=== PATIENT | male | born 1940 | race American Indian/Alaskan Native ===

== ENCOUNTER 2018-07-08 14:38 | Emergency (ER) | payer MEDICARE, OTHER ==
[2018-07-08] MEDS ORDERED: KEPPRA 1,000 MG/NS 0.75% 100ML 1,000 MG/100 ML BAG IV ONE (15:50)
--- NOTE | 2018-07-08 15:53 | Emergency Department Report ---
ED General Adult HPI - General Chief complaint: Seizure Stated complaint: LETHARGIC Time Seen by Provider: 07/08/18 15:40 Source: patient, EMS Mode of arrival: Stretcher Limitations: Altered Mental Status - History of Present Illness Initial comments: 77-year-old male with a history of pre-existing seizure disorder who does take Keppra is transported to this facility after what I presume to be a generalized seizure. I do not have access to the EMS report at this time. The patient has no specific complaints upon my encounter. He is basically oriented and alert. He did have a bit of trouble with the city thinking that it was [place] as opposed to [place]. He appears me stating that he lives with his nephew or other family member. He did not injure himself during the above seizure. He is comfortable. He shakes my hand on my encounter. He is in no distress. -: This afternoon Associated Symptoms: denies other symptoms - Related Data Previous Rx's Medication Instructions Recorded Last Taken Type levETIRAcetam [Keppra TAB] 500 mg PO BID #60 tablet 07/08/18 Unknown Rx ED Review of Systems ROS: Stated complaint: LETHARGIC Other details as noted in HPI Comment: All other systems reviewed and negative (limited secondary to likely dementia) ED Past Medical Hx - Past Medical History Hx Hypertension: Yes Hx Seizures: Yes - Social History Smoking Status: Current Every Day Smoker Substance Use Type: None - Medications Home Medications: Home Medications Medication Instructions Recorded Confirmed Last Taken Type levETIRAcetam [Keppra TAB] 500 mg PO BID #60 tablet 07/08/18 Unknown Rx ED Physical Exam - General Limitations: Other (dementia is likely) General appearance: alert, in no apparent distress - Head Head exam: Present: atraumatic, normocephalic - Eye Eye exam: Present: normal appearance, PERRL, EOMI. Absent: scleral icterus - ENT ENT exam: Present: mucous membranes moist, other (atraumatic tongue) - Neck Neck exam: Present: normal inspection. Absent: tenderness, meningismus - Respiratory Respiratory exam: Present: normal lung sounds bilaterally. Absent: respiratory distress - Cardiovascular Cardiovascular Exam: Present: regular rate, normal rhythm. Absent: systolic murmur, diastolic murmur, rubs, gallop - GI/Abdominal GI/Abdominal exam: Present: soft, normal bowel sounds. Absent: distended, tenderness, guarding, rebound, rigid - Rectal Rectal exam: Present: deferred - Extremities Exam Extremities exam: Present: normal inspection - Back Exam Back exam: Present: normal inspection. Absent: paraspinal tenderness, vertebral tenderness - Neurological Exam Neurological exam: Present: alert, oriented X3, CN II-XII intact. Absent: motor sensory deficit - Psychiatric Psychiatric exam: Present: normal affect, normal mood - Skin Skin exam: Present: warm, dry, intact, normal color. Absent: rash ED Course Vital Signs 07/08/18 15:15 Temperature 98.7 F Pulse Rate 62 Respiratory 22 Rate Blood Pressure 109/54 O2 Sat by Pulse 97 Oximetry - Reevaluation(s) Reevaluation #1: Patient was given Keppra. He had no recurrent seizures. I believe he is at his baseline mental status. He is appropriate for outpatient management. 07/08/18 17:50 ED Medical Decision Making - Lab Data Result diagrams: 07/08/18 15:58 07/08/18 15:58 Laboratory Results - last 24 hr 07/08/18 15:58 WBC 7.6 RBC 3.80 Hgb 9.7 L Hct 30.6 L MCV 81 L MCH 25 L MCHC 32 RDW 19.9 H Plt Count 230 Lymph % (Auto) 13.3 L [place] % (Auto) 8.7 H Eos % (Auto) 1.1 Baso % (Auto) 0.5 Lymph # 1.0 L [place]undy # 0.7 Eos # 0.1 Baso # 0.0 Seg Neutrophils % 76.4 H Seg Neutrophils # 5.8 Laboratory Results - last 24 hr 07/08/18 07/08/18 15:58 15:58 WBC 7.6 RBC 3.80 Hgb 9.7 L Hct 30.6 L MCV 81 L MCH 25 L MCHC 32 RDW 19.9 H Plt Count 230 Lymph % (Auto) 13.3 L [place] % (Auto) 8.7 H Eos % (Auto) 1.1 Baso % (Auto) 0.5 Lymph # 1.0 L [place]undy # 0.7 Eos # 0.1 Baso # 0.0 Seg Neutrophils % 76.4 H Seg Neutrophils # 5.8 Sodium 143 Potassium 4.1 Chloride 106.1 Carbon Dioxide 26 Anion Gap 15 BUN 28 H Creatinine 1.6 H Estimated GFR 42 BUN/Creatinine Ratio 18 Glucose 99 Calcium 9.1 Magnesium 2.30 Total Bilirubin < 0.20 Direct Bilirubin < 0.2 Indirect Bilirubin 0.0 AST 11 ALT 7 Alkaline Phosphatase 90 Total Protein 7.5 Albumin 3.8 L Albumin/Globulin Ratio 1.0 Critical care attestation.: If time is entered above; I have spent that time in minutes in the direct care of this critically ill patient, excluding procedure time. ED Disposition Clinical Impression: Seizure, History of seizure disorder, Renal insufficiency Anemia Qualifiers: Anemia type: unspecified type Qualified Code(s): D64.9 - Anemia, unspecified Disposition: DC-01 TO HOME OR SELFCARE Is pt being admited?: No Does the pt Need Aspirin: No Condition: Stable Instructions: Recurrent Seizures Adult (ED), Chronic Kidney Disease (ED), Anemia (ED) Additional Instructions: Follow-up with your primary care physician. If he needs a prescription for Keppra, it is attached. Return any acute change or problem. Prescriptions: levETIRAcetam [Keppra TAB] 500 mg PO BID #60 tablet Referrals: PRIMARY CARE [Primary Care Provider] - 3-5 Days Time of Disposition: 17:47
[2018-07-08 16:37] LABS: Basophils % (Auto) 0.5 % (0.0-1.8); Eosinophils # (Auto) 0.1 K/mm3 (0.0-0.4); Eosinophils % (Auto) 1.1 % (0.0-4.3); Hematocrit 30.6 % (35.5-45.6); Hemoglobin 9.7 gm/dl (11.8-15.2); Lymphocytes % (Auto) 13.3 % (13.4-35.0); Mean Corpuscular HGB Conc 32 % (32-34); Mean Corpuscular Volume 81 fl (84-94); Monocytes # (Auto) 0.7 K/mm3 (0.0-0.8); Monocytes % (Auto) 8.7 % (0.0-7.3); Platelet Count 230 K/mm3 (140-440); Red Cell Distribution Width 19.9 % (13.2-15.2)
[2018-07-08 17:01] LABS: Alanine Aminotransferase 7 units/L (7-56); Albumin 3.8 g/dL (3.9-5); BUN/Creatinine Ratio 18; Blood Urea Nitrogen 28 mg/dL (9-20); Calcium 9.1 mg/dL (8.4-10.2); Hemolysis Index 12
[2018-07-08 17:15] LABS: Bilirubin,Direct < 0.2 mg/dL (0-0.2)
[2018-07-08 20:25] VITALS: BP 155/80
== END 2018-07-08 22:54 | disposition home or self-care (01) ==
LOC: ED 14:38
DX: G40.909 Epilepsy, unspecified, not intractable, without status epilepticus (principal); D64.9 Anemia, unspecified; N28.9 Disorder of kidney and ureter, unspecified; I10 Essential (primary) hypertension; F17.200 Nicotine dependence, unspecified, uncomplicated
CPT/HCPCS: 36415; 80048; 80076; 82962; 83735; 85025; 96374; 99284; J1953

== ENCOUNTER 2018-08-21 13:44 | Emergency (ER) | payer MEDICARE, OTHER ==
--- NOTE | 2018-08-21 15:49 | Emergency Department Report ---
ED General Adult HPI - General Chief complaint: Weakness Stated complaint: WEAKNESS X 2DAYS Time Seen by Provider: 08/21/18 14:58 Source: EMS (ems notes not available at time of chart dictation), RN notes reviewed, old records reviewed Mode of arrival: Stretcher Limitations: Altered Mental Status, Physical Limitation - History of Present Illness Initial comments: This is a pleasant 77-year-old gentleman. The patient is not known to this provider previously. He may have a history of seizures, and renal insufficiency. He was seen in this department early June 2018 for general weakness. Today, he is reportedly sent to the emergency room by family for weakness. As per verbal report from nursing staff, who in turn received verbal report from EMS, EMS indicated that patient's family would not come down with the patient, and that they were simply shouting down the stairs to give a history to EMS. In the emergency room, the patient denies headache, neck pain, exertional chest pain, abdominal pain, nausea, vomiting, diarrhea, extremity weakness or numbness, and urinary symptoms. He indicates no complaints at this provider. He doesn't know what medications he takes. He is asking to sleep and to eat. No additional history available at this time. -: unknown Improves with: none Worsens with: none - Related Data Previous Rx's Medication Instructions Recorded Last Taken Type levETIRAcetam [Keppra TAB] 500 mg PO BID #60 tablet 07/08/18 Unknown Rx Allergies Allergy/AdvReac Type Severity Reaction Status Date / Time No Known Allergies Allergy Unverified 08/21/18 14:32 ED Review of Systems ROS: Stated complaint: WEAKNESS X 2DAYS Other details as noted in HPI Constitutional: denies: fever Eyes: denies: eye discharge ENT: denies: epistaxis Respiratory: denies: cough Cardiovascular: denies: chest pain Gastrointestinal: denies: vomiting Genitourinary: denies: dysuria Musculoskeletal: denies: back pain Skin: denies: lesions Neurological: denies: headache ED Past Medical Hx - Past Medical History Previous Medical History?: Yes Hx Hypertension: Yes Hx CVA: Yes Hx Seizures: Yes Additional medical history: Dementia, Alzheimer - Surgical History Past Surgical History?: No - Social History Smoking Status: Never Smoker - Medications Home Medications: Home Medications Medication Instructions Recorded Confirmed Last Taken Type levETIRAcetam [Keppra TAB] 500 mg PO BID #60 tablet 07/08/18 Unknown Rx ED Physical Exam - General General appearance: alert, in no apparent distress - Head Head exam: Present: atraumatic, normocephalic - Eye Eye exam: Present: normal appearance, EOMI. Absent: nystagmus - ENT ENT exam: Present: normal exam, normal orophraynx, mucous membranes moist, normal external ear exam - Neck Neck exam: Present: normal inspection, full ROM. Absent: tenderness, meningismus - Respiratory Respiratory exam: Present: normal lung sounds bilaterally. Absent: respiratory distress - Cardiovascular Cardiovascular Exam: Present: regular rate, normal rhythm, normal heart sounds. Absent: bradycardia, tachycardia, irregular rhythm, systolic murmur, diastolic murmur, rubs, gallop - GI/Abdominal GI/Abdominal exam: Present: soft. Absent: distended, tenderness, guarding, rebound, rigid, pulsatile mass - Rectal Rectal exam: Present: deferred - Extremities Exam Extremities exam: Present: normal inspection, full ROM, other (2+ pulses noted in the bilateral upper, lower extremities. Compartments soft. No long bony tenderness. The pelvis is stable.). Absent: pedal edema, calf tenderness - Back Exam Back exam: Present: normal inspection, full ROM. Absent: tenderness, CVA tenderness (R), CVA tenderness (L), paraspinal tenderness, vertebral tenderness - Neurological Exam Neurological exam: Present: alert, other (Extraocular movements intact. Tongue midline. No facial droop. Facial sensation intact to light touch in the V1, V2, V3 distribution bilaterally. 5 and 5 strength in 4 extremities.. Sensation is intact to light touch in 4 extremities.). Absent: motor sensory deficit - Psychiatric Psychiatric exam: Present: flat affect - Skin Skin exam: Present: warm, dry, intact, normal color. Absent: rash ED Course Vital Signs 08/21/18 08/21/18 08/21/18 14:27 14:38 14:46 Temperature Pulse Rate 77 50 L Respiratory 18 15 Rate Blood Pressure 126/92 Blood Pressure [Left] O2 Sat by Pulse 98 95 96 Oximetry 08/21/18 08/21/18 08/21/18 15:00 15:16 15:30 Temperature Pulse Rate 49 L 47 L 48 L Respiratory 16 17 14 Rate Blood Pressure Blood Pressure [Left] O2 Sat by Pulse 97 99 98 Oximetry 08/21/18 08/21/18 08/21/18 15:46 16:04 16:05 Temperature 97.9 F Pulse Rate 60 48 L 95 H Respiratory 14 18 20 Rate Blood Pressure Blood Pressure 96/59 [Left] O2 Sat by Pulse 96 96 98 Oximetry 08/21/18 08/21/18 08/21/18 16:12 16:15 16:59 Temperature 97.9 F Pulse Rate 45 L Respiratory 13 Rate Blood Pressure 144/73 144/73 Blood Pressure [Left] O2 Sat by Pulse 98 72 L Oximetry 08/21/18 17:01 Temperature Pulse Rate 52 L Respiratory 12 Rate Blood Pressure 155/81 Blood Pressure [Left] O2 Sat by Pulse 100 Oximetry - Reevaluation(s) Reevaluation #1: 08/21/18 16:44 Differential diagnosis, including not limited to: Dementia, pneumonia, urinary tract infection, thyroid derangement, electrolyte derangement Assessment and plan: 77-year-old gentleman, likely early dementia, with no endorsed complaint to this provider. The patient is afebrile with reassuring vital signs. His physical exam is unremarkable. Recent laboratory studies are reviewed and appreciated. CT scan of the brain, x-ray of the chest, laboratory studies, urinalysis pending. Reevaluation #2: 08/21/18 18:30 Vital signs have remained stable. Patient is in no acute distress. Objective testing appears to be unremarkable. Moving 4 extremities without difficulty. Patient is observed in this department for almost 5 hours without decompensation. He does not appear to have an emergent medical condition at this time. ED Medical Decision Making - Lab Data Result diagrams: 08/21/18 15:52 08/21/18 15:52 Vital Signs 08/21/18 08/21/18 08/21/18 14:27 14:38 14:46 Temperature Pulse Rate 77 50 L Respiratory 18 15 Rate Blood Pressure 126/92 Blood Pressure [Left] O2 Sat by Pulse 98 95 96 Oximetry 08/21/18 08/21/18 08/21/18 15:00 16:04 16:05 Temperature 97.9 F Pulse Rate 49 L 48 L 95 H Respiratory 16 18 20 Rate Blood Pressure Blood Pressure 96/59 [Left] O2 Sat by Pulse 97 96 98 Oximetry 08/21/18 16:12 Temperature 97.9 F Pulse Rate Respiratory Rate Blood Pressure Blood Pressure [Left] O2 Sat by Pulse Oximetry Lab Results 08/21/18 08/21/18 Range/Units 15:52 15:52 WBC 3.6 L (4.5-11.0) K/mm3 RBC 3.95 (3.65-5.03) M/mm3 Hgb 10.1 L (11.8-15.2) gm/dl Hct 31.7 L (35.5-45.6) % MCV 80 L (84-94) fl MCH 26 L (28-32) pg MCHC 32 (32-34) % RDW 19.4 H (13.2-15.2) % Plt Count 208 (140-440) K/mm3 PT 13.0 (12.2-14.9) Sec. INR 1.01 (0.87-1.13) - EKG Data -: EKG Interpreted by Vt Rate: bradycardia - EKG Data When compared to previous EKG there are: previous EKG unavailable 08/21/18 16:45 There is no prior EKG for comparison. This is a sinus bradycardia, with a left axis deviation, right bundle-branch block, QTC within normal limits, ID interval within normal limits, this is an abnormal EKG, this EKG is not consistent with ST elevation myocardial infarction. - Radiology Data Radiology results: pending, report reviewed, image reviewed X-ray of the chest interpreted as negative for acute disease Print Report Referring Physician: ILSA CASTRO Patient Name: TRI BLANCA Date of : 1940 Sex: Male Report Date: 2018-08-21 Report Status: [place] [address] Cat Scan Report Signed Patient: TRI BLANCA MR#: [id number] 0 : 1940 Acct:[id number] Age/Sex: 77 / M ADM Date: 08/21/18 Loc: ED Attending Dr: Ordering Physician: ILSA CASTRO MD Date of Service: 08/21/18 Procedure(s): CT head/brain wo con Accession Number(s): [id number] cc: ILSA CASTRO MD CT HEAD WITHOUT CONTRAST INDICATION / CLINICAL INFORMATION: MAIN: Weakness, AMS. TECHNIQUE: All CT scans at this location are performed using CT dose reduction for ALARA by means of automated exposure control. COMPARISON: None available. FINDINGS: HEMORRHAGE: No evidence of intracranial hemorrhage or extra-axial fluid collection. EXTRA-AXIAL SPACES: Cortical sulci and sylvian fissures are enlarged reflecting a degree of parenchymal volume loss which is prominent given the patient's age of 77 years. Basilar cisterns have an unremarkable appearan ce. VENTRICULAR SYSTEM: The third and lateral ventricles are enlarged reflecting resonance of age related parenchymal volume loss. CEREBRAL PARENCHYMA: Periventricular and deep white matter lucency is observed. This is probably secondary to microvascular ischemic change. There is no indication of recent infarction. An area of encephalomalacia is served along the medial aspect of the right frontal lobe secondary to remote anterior cerebral artery infarction. Bilateral remote small deep thalamic infarctions are identified. A remote, small deep infarction is identified in the region of the left putamen. In addition a remote small deep infarction is present in the vicinity of the genu of the int ernal capsule on the right. MIDLINE SHIFT OR HERNIATION: There is no mass effect. CEREBELLUM / BRAINSTEM: Brainstem and cerebellum have an unremarkable appearance. INTRACRANIAL VESSELS:Calcified atherosclerotic plaque is present along the course of the cavernous segments of both internal carotid arteries. ORBITS: visualized portions of the orbits have an unremarkable appearance. SOFT TISSUES of HEAD: No significant abnormality. CALVARIUM: Evaluation of bone windows reveals no abnormalities. PARANASAL SINUSES / MASTOID AIR CELLS: Paranasal sinuses are free from inflammatory mucosal disease. Mastoid air cells are normally pneumatized. ADDITIONAL FINDINGS: None. IMPRESSION: 1. Moderate central greater than cortical atrophy which is prominent even allowing for the patient's age of 77 years. 2. Remote right anterior cerebral artery infarction. 3. Multifocal small deep thalamic and gangliocapsular infarctions. Signer Name: Mike Cosby MD Signed: 08/21/2018 4:47 PM Workstation Name: [id number] Transcribed By: REF Dictated By: JEFF HUANG MD Electronically Authenticated By: JEFF HUANG MD Signed Date/Time: 08/21/18 0650 Critical care attestation.: If time is entered above; I have spent that time in minutes in the direct care of this critically ill patient, excluding procedure time. ED Disposition Clinical Impression: General medical exam Disposition: DC- TO HOME OR SELFCARE Is pt being admited?: No Does the pt Need Aspirin: No Condition: Stable Additional Instructions: Follow-up with the primary care doctor within 7-10 days. Avoid consumption of Motrin, ibuprofen, Naprosyn, Aleve. He is return to the emergency room right away with it, worsened or different symptoms not present on the initial emergency room evaluation. Referrals: [facility] [Provider Group] - 3-5 Days [facility] [Provider Group] - 3-5 Days
[2018-08-21 16:10] LABS: Hematocrit 31.7 % (35.5-45.6); Hemoglobin 10.1 gm/dl (11.8-15.2); Mean Corpuscular HGB Conc 32 % (32-34); Mean Corpuscular Volume 80 fl (84-94); Platelet Count 208 K/mm3 (140-440); Red Blood Count 3.95 M/mm3 (3.65-5.03); Red Cell Distribution Width 19.4 % (13.2-15.2)
[2018-08-21 16:21] LABS: INR 1.01 (0.87-1.13)
--- NOTE | 2018-08-21 16:36 | XRay Report ---
CHEST 1 VIEW INDICATION / CLINICAL INFORMATION: Weakness. COMPARISON: None available. FINDINGS: SUPPORT DEVICES: None. HEART / MEDIASTINUM: No significant abnormality. LUNGS / PLEURA: No significant pulmonary or pleural abnormality.. No pneumothorax. ADDITIONAL FINDINGS: 2 surgical clips project over the right hilum IMPRESSION: 1. No acute findings. Signer Name: Memo Vidal MD Signed: 08/21/2018 4:31 PM Workstation Name: [id number]
[2018-08-21 17:08] LABS: Calcium 8.8 mg/dL (8.4-10.2)
[2018-08-21] MEDS ORDERED: ATIVAN IM PRN (17:28)
[2018-08-21] MEDS ORDERED: HALDOL IM STA (17:28)
--- NOTE | 2018-08-21 17:51 | Cat Scan Report ---
CT HEAD WITHOUT CONTRAST INDICATION / CLINICAL INFORMATION: MAIN: Weakness, AMS. TECHNIQUE: All CT scans at this location are performed using CT dose reduction for ALARA by means of automated e xposure control. COMPARISON: None available. FINDINGS: HEMORRHAGE: No evidence of intracranial hemorrhage or extra-axial fluid collection. EXTRA-AXIAL SPACES: Cortical sulci and sylvian fissures are enlarged reflecting a degree of parenchym al volume loss which is prominent given the patient's age of 77 years. Basilar cisterns have an unrem arkable appearance. VENTRICULAR SYSTEM: The third and lateral ventricles are enlarged reflecting resonance of age related parenchymal volume loss. CEREBRAL PARENCHYMA: Periventricular and deep white matter lucency is observed. This is probably seco ndary to microvascular ischemic change. There is no indication of recent infarction. An area of encep halomalacia is served along the medial aspect of the right frontal lobe secondary to remote anterior cerebral artery infarction. Bilateral remote small deep thalamic infarctions are identified. A remote , small deep infarction is identified in the region of the left putamen. In addition a remote small d eep infarction is present in the vicinity of the genu of the internal capsule on the right. MIDLINE SHIFT OR HERNIATION: There is no mass effect. CEREBELLUM / BRAINSTEM: Brainstem and cerebellum have an unremarkable appearance. INTRACRANIAL VESSELS:Calcified atherosclerotic plaque is present along the course of the cavernous se gments of both internal carotid arteries. ORBITS: visualized portions of the orbits have an unremarkable appearance. SOFT TISSUES of HEAD: No significant abnormality. CALVARIUM: Evaluation of bone windows reveals no abnormalities. PARANASAL SINUSES / MASTOID AIR CELLS: Paranasal sinuses are free from inflammatory mucosal disease. Mastoid air cells are normally pneumatized. ADDITIONAL FINDINGS: None. IMPRESSION: 1. Moderate central greater than cortical atrophy which is prominent even allowing for the patient's age of 77 years. 2. Remote right anterior cerebral artery infarction. 3. Multifocal small deep thalamic and gangliocapsular infarctions. Signer Name: Mike Cosby MD Signed: 08/21/2018 5:47 PM Workstation Name: [id number]
[2018-08-21 18:00] LABS: Bilirubin,Urine NEG (Negative); Blood,Urine NEG (Negative); Color,Urine Yellow (Yellow); Hyaline Casts,Urine 1 /LPF; Protein,Urine <15 mg/dL mg/dL (Negative); Urobilinogen,Urine < 2.0 mg/dL (<2.0)
[2018-08-22] MEDS ORDERED: PROVENTIL IH PRN (10:01)
[2018-08-22] MEDS ORDERED: ZOFRAN ODT PO PRN (10:01)
[2018-08-22] MEDS ORDERED: TYLENOL PO PRN (10:01)
[2018-08-22] MEDS ORDERED: KEPPRA PO SCH (11:00)
[2018-08-22 11:03] VITALS: BP 156/79
== END 2018-08-22 11:20 | disposition home or self-care (01) ==
LOC: ED 13:44
DX: Z00.8 Encounter for other general examination (principal); I10 Essential (primary) hypertension; G30.9 Alzheimer's disease, unspecified; F02.80 Dementia in other diseases classified elsewhere, unspecified severity, without behavioral disturbance, psychotic disturbance, mood disturbance, and anxiety; Z86.73 Personal history of transient ischemic attack (TIA), and cerebral infarction without residual deficits
CPT/HCPCS: 36415; 70450; 71045; 80048; 81001; 82550; 83735; 84443; 85027; 85610; 93005; 93010; 99285; J2060